=== PATIENT | female | born 1945 | race Caucasian/White ===

== ENCOUNTER 2017-07-19 10:27 | Outpatient (CLI) | payer OTHER | END 2017-07-19 10:37 | disposition home or self-care (01) | LOC: LAB 10:27 | DX: E55.9 Vitamin D deficiency, unspecified (principal); M85.89 Other specified disorders of bone density and structure, multiple sites ==

== ENCOUNTER 2017-08-28 17:49 | Emergency (ER) | payer OTHER ==
[~2017-08-28] VITALS: Ht 157.5 cm; Wt 65.8 kg
== END 2017-08-28 19:12 | disposition home or self-care (01) ==
LOC: ER 17:49
DX: R51 Headache (principal)

== ENCOUNTER 2017-10-07 07:15 | Outpatient (CLI) | payer OTHER | END 2017-10-07 07:27 | disposition home or self-care (01) | LOC: LAB 07:15 | DX: I10 Essential (primary) hypertension (principal); E11.9 Type 2 diabetes mellitus without complications; E03.8 Other specified hypothyroidism; E78.2 Mixed hyperlipidemia; K92.1 Melena; D64.0 Hereditary sideroblastic anemia ==

== ENCOUNTER 2017-10-07 10:08 | Outpatient (CLI) | payer OTHER | END 2017-10-07 14:29 | disposition home or self-care (01) | LOC: NUCLEAR → MAMO-SONO 10:08 | DX: Z12.31 Encounter for screening mammogram for malignant neoplasm of breast (principal); Z87.898 Personal history of other specified conditions; N62 Hypertrophy of breast ==

== ENCOUNTER 2017-10-13 10:12 | Outpatient (CLI) | payer OTHER | END 2017-10-13 10:15 | disposition home or self-care (01) | LOC: LAB 10:12 | DX: I10 Essential (primary) hypertension (principal); E11.9 Type 2 diabetes mellitus without complications; E03.8 Other specified hypothyroidism; E78.2 Mixed hyperlipidemia; K92.1 Melena; D64.0 Hereditary sideroblastic anemia; Z12.11 Encounter for screening for malignant neoplasm of colon ==

== ENCOUNTER 2018-03-02 10:33 | Outpatient (CLI) | payer OTHER | END 2018-03-02 10:48 | disposition home or self-care (01) | LOC: NUCLEAR 10:33 | DX: M85.89 Other specified disorders of bone density and structure, multiple sites (principal) ==

== ENCOUNTER 2018-03-09 09:29 | Outpatient (CLI) | payer OTHER | END 2018-03-09 10:35 | disposition home or self-care (01) | LOC: LAB 09:29 | DX: M81.0 Age-related osteoporosis without current pathological fracture (principal) ==

== ENCOUNTER 2018-05-27 09:56 | Outpatient (CLI) | payer OTHER | END 2018-05-27 10:00 | disposition home or self-care (01) | LOC: LAB 09:56 | DX: M81.0 Age-related osteoporosis without current pathological fracture (principal) ==

== ENCOUNTER 2020-04-10 07:46 | Outpatient (CLI) | payer OTHER | END 2020-04-10 07:59 | disposition home or self-care (01) | LOC: LAB 07:46 | PROVIDERS: ATTEND Internal Medicine Cardiovascular Disease | DX: E03.8 Other specified hypothyroidism (principal); I10 Essential (primary) hypertension; E11.9 Type 2 diabetes mellitus without complications; E78.2 Mixed hyperlipidemia; E55.9 Vitamin D deficiency, unspecified ==

== ENCOUNTER 2020-04-23 13:54 | Outpatient (CLI) | payer OTHER | END 2020-04-23 14:03 | disposition home or self-care (01) | LOC: NUCLEAR 13:54 | PROVIDERS: ATTEND Internal Medicine Cardiovascular Disease | DX: M81.0 Age-related osteoporosis without current pathological fracture (principal) ==

== ENCOUNTER 2020-05-02 13:27 | Outpatient (CLI) | payer OTHER | END 2020-05-02 13:38 | disposition HB | LOC: MAMO-SONO 13:27 | PROVIDERS: ATTEND Internal Medicine Cardiovascular Disease | DX: R92.0 Mammographic microcalcification found on diagnostic imaging of breast (principal); Z12.31 Encounter for screening mammogram for malignant neoplasm of breast; N63.11 Unspecified lump in the right breast, upper outer quadrant ==

== ENCOUNTER 2020-06-28 08:22 | Outpatient (CLI) | payer OTHER | END 2020-06-28 08:27 | disposition home or self-care (01) | LOC: LAB 08:22 | PROVIDERS: ATTEND Internal Medicine Cardiovascular Disease | DX: E03.8 Other specified hypothyroidism (principal); I10 Essential (primary) hypertension; E11.9 Type 2 diabetes mellitus without complications; E78.2 Mixed hyperlipidemia; Z12.11 Encounter for screening for malignant neoplasm of colon; E55.9 Vitamin D deficiency, unspecified ==

== ENCOUNTER → 2020-07-02 11:09 | Outpatient (CLI) | payer OTHER | END | disposition home or self-care (01) | LOC: LAB 11:09 | PROVIDERS: ATTEND Internal Medicine Cardiovascular Disease | DX: E03.8 Other specified hypothyroidism (principal); I10 Essential (primary) hypertension; E11.9 Type 2 diabetes mellitus without complications; E78.2 Mixed hyperlipidemia; Z12.11 Encounter for screening for malignant neoplasm of colon; E55.9 Vitamin D deficiency, unspecified ==

== ENCOUNTER 2023-07-20 13:36 | Outpatient (CLI) | payer OTHER | END 2023-07-20 13:37 | disposition home or self-care (01) | LOC: NUCLEAR 13:36 | PROVIDERS: ATTEND Internal Medicine Cardiovascular Disease | DX: M81.0 Age-related osteoporosis without current pathological fracture (principal) ==

== ENCOUNTER 2023-07-27 12:41 | Outpatient (CLI) | payer OTHER | END 2023-07-27 12:47 | disposition home or self-care (01) | LOC: MAMO-SONO 12:41 | PROVIDERS: ATTEND Internal Medicine Cardiovascular Disease | DX: N60.11 Diffuse cystic mastopathy of right breast (principal); N60.12 Diffuse cystic mastopathy of left breast; Z12.31 Encounter for screening mammogram for malignant neoplasm of breast ==